=== PATIENT | male | born 1995 | race Caucasian/White ===

== ENCOUNTER 2019-02-28 22:03 | Emergency (ER) | payer MEDICAID ==
[~2019-02-28] VITALS: Ht 190.5 cm; Wt 83.9 kg
[2019-02-28 22:44] VITALS: BP 118/73
[2019-03-01] MEDS ORDERED: HYDROcodone-ACET 5/325MG TAB PO ONE (01:45)
[2019-03-01] MEDS ORDERED: BACLOFEN 10 MG TAB PO ONE (02:30)
[2019-03-01] MEDS ORDERED: KETOROLAC TROMETH 60MG/2ML VIAL IM ONE (02:30)
[2019-03-01] MEDS ORDERED: methylPREDNISolone SOD SUCC 125 MG/2 ML VL IM ONE (02:30)
[2019-03-01] MEDS ORDERED: MORPHINE SULF INJ 2 MG/ML SYRINGE 1ML IM ONE (03:30)
== END 2019-03-01 04:27 | disposition home or self-care (01) ==
LOC: ER 22:03 → EDBD 22:03 → ER 03-01 04:27
DX: S42.022A Displaced fracture of shaft of left clavicle, initial encounter for closed fracture (principal); X58.XXXA Exposure to other specified factors, initial encounter; Y93.23 Activity, snow (alpine) (downhill) skiing, snowboarding, sledding, tobogganing and snow tubing; Y92.89 Other specified places as the place of occurrence of the external cause; Y99.8 Other external cause status
CPT/HCPCS: 73000; 96372; 99283; J1885; J2270